=== PATIENT | male | born 1960 | race African-American/Black ===

== ENCOUNTER 2023-10-15 18:50 | Inpatient (IN) | payer OTHER ==
[2023-10-15 19:23] VITALS: BMI 33.7
[2023-10-15] MEDS ORDERED: cloNIDine HCL 0.1 MG TABLET PO PRN (19:40)
[2023-10-15] MEDS ORDERED: IBUPROFEN 400 MG TABLET (FP) PO PRN (19:49)
[2023-10-15] MEDS ORDERED: ACETAMINOPHEN 325 MG TABLET (FP) PO PRN (19:49)
[2023-10-15] MEDS ORDERED: MAG HYDROX/AL HYDROX/SIMETH 30 ML UNIT-DOSE CUP PO PRN (19:49)
[2023-10-15] MEDS ORDERED: BENZONATATE 200 MG CAPSULE PO PRN (19:49)
[2023-10-15] MEDS ORDERED: P-EPHED 60MG/TRIPROLIDI 2.5MG TABLET PO PRN (19:49)
[2023-10-15] MEDS ORDERED: DICYCLOMINE HCL 10 MG CAPSULE PO PRN (19:49)
[2023-10-15] MEDS ORDERED: NICOTINE POLACRILEX 2 MG LOZENGE BC PRN (19:49)
[2023-10-15] MEDS ORDERED: BENZOCAINE/MENTHOL (CHLORASEPTIC ) LOZENGE MM PRN (19:49)
[2023-10-15] MEDS ORDERED: guaiFENesin 600 MG TABLET.ER (FP) PO PRN (19:49)
[2023-10-15] MEDS ORDERED: NALOXONE HCL (KLOXXADO) 8 MG SPRAY NS PRN (19:49)
[2023-10-15] MEDS ORDERED: NALOXONE HCL 0.4 MG/ML VIAL IM PRN (19:49)
[2023-10-15] MEDS ORDERED: POLYETHYLENE GLYCOL (HEALTHYLAX) 3350 17 GM PACKET PO PRN (19:49)
[2023-10-15] MEDS ORDERED: methaDONE HCL 10 MG TABLET (FOR DETOX USE ONLY) ONE (20:17)
[2023-10-15] MEDS ORDERED: cloNIDine HCL 0.1 MG TABLET ONE (20:18)
[2023-10-15] MEDS: methaDONE HCL 10 MG TABLET (FOR DETOX USE ONLY) PO ONE (20:21)
[2023-10-15] MEDS: cloNIDine HCL 0.1 MG TABLET PO ONE (20:21)
[2023-10-15] MEDS: THIAMINE 100 MG TABLET PO SCH (23:04)
[2023-10-15] MEDS: MELATONIN 5 MG TABLETS PO SCH (23:04)
[2023-10-15] MEDS: amLODIPine BESYLATE 10 MG TABLET (FP) PO ONE (23:53)
[2023-10-16] MEDS: PRENATAL VITAMINS W/ FOLIC ACID TABLET (FP) PO SCH (10:33)
[2023-10-16] MEDS: HYDROCHLOROTHIAZIDE 25 MG TABLET (FP) PO SCH (10:33)
[2023-10-16] MEDS: ONDANSETRON *ODT* 4 MG TABLET SL PRN (10:35)
[2023-10-16] MEDS: BISMUTH SUBSALICYLATE 524 MG/30 ML PO PRN (12:10)
[2023-10-16] MEDS: METHOCARBAMOL 500 MG TABLET PO PRN (22:29)
[2023-10-17] MEDS: IBUPROFEN 600 MG TABLET (FP) PO PRN (07:34)
[2023-10-17] MEDS: methaDONE HCL 10 MG TABLET (FOR DETOX USE ONLY) PO ONE (09:49)
[2023-10-19] MEDS: methaDONE HCL 10 MG TABLET (FOR DETOX USE ONLY) PO ONE (09:44)
[2023-10-21] MEDS ORDERED: BUPRENORPHINE HCL 150 MCG, BUPRENORPHINE HCL 75 MCG BC PRN (15:14)
[2023-10-21] MEDS: BUPRENORPHINE HCL 150 MCG, BUPRENORPHINE HCL 75 MCG BC ONE (17:44)
[2023-10-21] MEDS ORDERED: cloNIDine HCL 0.1 MG TABLET PO PRN (19:14)
[2023-10-22] MEDS ORDERED: BUPRENORPHINE HCL 150 MCG, BUPRENORPHINE HCL 75 MCG BC PRN
[2023-10-22] MEDS: BUPRENORPHINE HCL 150 MCG, BUPRENORPHINE HCL 75 MCG BC SCH (06:50)
[2023-10-22 11:52] LABS: BASO % 0.7 % (0-2.0); EOS % 2.7 % (0-4.5); HEMATOCRIT 43.3 % (35.4-49); HEMOGLOBIN 14.3 GM/dL (11.7-16.9); LYMPH % 21.7 % (8-40); MCH 28.8 pg (25.7-33.7); MCHC 33.1 g/dl (32.0-35.9); MEAN CELL VOLUME 86.9 fl (80-96); MEAN PLT VOLUME 7.5 fl (7.5-11.1); NEUT % 68.9 % (42.8-82.8); PLATELET COUNT 305 10^3/uL (134-434); RBC 4.98 M/mm3 (4.00-5.60); RDW 13.5 % (11.9-15.9); WHITE BLOOD COUNT 7.9 K/mm3 (4.0-10.0)
[2023-10-22 12:02] LABS: POTASSIUM 3.8 mmol/L (3.5-5.1)
[2023-10-22 12:04] LABS: CALCIUM 9.3 mg/dL (8.5-10.1); PROTHROMBIN TIME (PATIENT) 11.3 SEC (9.7-13.0)
[2023-10-22 12:05] LABS: ALBUMIN 3.6 g/dl (3.4-5.0); BLOOD UREA NITROGEN 13.2 mg/dL (7-18)
[2023-10-22 12:10] LABS: BILIRUBIN,TOTAL 0.6 mg/dL (0.2-1); MAGNESIUM 2.1 mg/dL (1.8-2.4); TOT PROT 7.4 g/dl (6.4-8.2)
[2023-10-23] MEDS: BUPRENORPHINE HCL 450 MCG FILM BC SCH (06:21)
[2023-10-23] MEDS: MAGNESIUM HYDROX 2400MG/30ML ORAL SUSPENSION 30 ML CUP PO PRN (19:45)
[2023-10-24] MEDS: BUPRENORPHINE/NALOXONE 4 MG/1 MG FILM PACKET SL SCH (06:47)
[2023-10-25] MEDS: LOPERAMIDE HCL 2 MG CAPSULE PO PRN (06:52)
[2023-10-25] MEDS: BUPRENORPHINE/NALOXONE 4 MG/1 MG FILM PACKET SL SCH ×2 (10:08→19:07)
[2023-10-26] MEDS: BUPRENORPHINE/NALOXONE 4 MG/1 MG FILM PACKET SL SCH (20:11)
[2023-10-27] MEDS: BUPRENORPHINE/NALOXONE 4 MG/1 MG FILM PACKET SL SCH (14:20)
[2023-10-28] MEDS: BUPRENORPHINE/NALOXONE 4 MG/1 MG FILM PACKET SL SCH (13:03)
[2023-10-31 07:11] VITALS: RESP 18
[2023-11-02 06:31] VITALS: BP 126/79; PULSE 76; TEMP 97
== END 2023-11-02 10:49 | disposition home or self-care (01) | DRG 895 ==
LOC: YASAS 18:50 → Y3NR 20:28 → Y3N 20:28 → UNDOADMIN 20:28 → Y3N 10-18 13:32 → Y5N 10-20 19:29
PROVIDERS: ADMIT Allergy & Immunology; ATTEND Psychiatry & Neurology Pain Medicine
PROC: HZ2ZZZZ Detoxification Services for Substance Abuse Treatment (ICD-10-PCS; principal; 2023-10-15)
PROC: HZ42ZZZ Group Counseling for Substance Abuse Treatment, Cognitive-Behavioral (ICD-10-PCS; 2023-10-20)
DX: F11.23 Opioid dependence with withdrawal (principal); Z59.00 Homelessness unspecified; F12.20 Cannabis dependence, uncomplicated; F17.210 Nicotine dependence, cigarettes, uncomplicated; I10 Essential (primary) hypertension; R00.0 Tachycardia, unspecified
CPT/HCPCS: 36415; 80053; 80305; 82140; 82962; 83735; 85025; 85610; 93005; 93010; Q0162